=== PATIENT | male | born 1990 | race Caucasian/White ===

== ENCOUNTER 2020-07-13 15:57 | Emergency (ER) | payer MEDICARE, MEDICAID, SELFPAY ==
[2020-07-13 16:08] VITALS: BP 146/99; PULSE 73; RESP 18; TEMP 36.5; O2SAT 97; BMI 36.6
--- NOTE | 2020-07-13 16:16 | W.ED.DENTAL ---
HPI - Dental/Oral General: Chief complaint: Dental/Oral Stated complaint: dental pain Time Seen by Provider: 07/13/20 16:09 Source: patient Mode of arrival: ambulatory Limitations: no limitations History of Present Illness: HPI Narrative: Mr. Marie is a nice 30-year-old male who comes in complaining of dental pain for the past 2 to 3 days. His left inferior most posterior molar is causing him pain. He is scheduled see a dentist upcoming in the next 2 to 3 days but could not take the pain today. He denies any facial swelling or fever. Denies any difficulty swallowing. Associated symptoms: Denies ear or mastoid pain, fever(s), odynophagia or tongue swelling Review of Systems Const: Denies: fever(s), chills, body aches, fatigue, malaise or diaphoresis Eyes: Denies: change in vision, blurry vision, photophobia, eye discomfort, eye discharge or eye redness ENMT: Denies: throat pain, odynophagia, hoarseness, swelling of lips/tongue, ear or mastoid pain, ear discharge, change in hearing or nasal discharge Card: Denies: chest pain, palpitations, irregular heart rhythm, edema, lightheadedness, syncope, pre-syncope, dyspnea on exertion or orthopnea Resp: Denies: dyspnea, productive cough, non-productive cough, wheezing, hemoptysis or chest congestion GI: Denies: abdominal pain, nausea, vomiting, hematemesis, coffee ground emesis, heartburn, diarrhea, constipation, GI cramping, hematochezia or melena : Denies: flank pain, dysuria, urinary frequency, urinary urgency or hematuria Musc: Denies: neck pain, back pain, extremity pain, extremity swelling, joint pain, joint swelling, joint redness, joint warmth or joint stiffness Skin/Breast: Denies: rash, pruritus, erythema or skin tenderness Neuro: Denies: headache(s), numbness in extremities, weakness in extremities, sensory changes, lack of coordination, difficulty walking, dizziness, vertigo, confusion, Slurred speech present or seizure-like activity Eduardo/Lymph: Denies: easy bruising, easy bleeding, petechiae, purpura or enlarged lymph nodes All/Imm: Denies: urticaria, throat swelling, tongue swelling, facial swelling or acute wheezing PFSH ED PFSH: Medical History (Updated 07/13/20 @ 16:18 by Dahiana Dasilva) No pertinent past medical history Surgical History (Updated 07/13/20 @ 16:16 by Dahiana Dasilva) S/P cholecystectomy Physical Exam Const: COMMON NORMALS: no acute distress, patient oriented x3, no limitations, healthy appearing and well nourished GENERAL APPEARANCE: cooperative, well kempt and well developed HENMT: COMMON NORMALS: normocephalic, atraumatic, external ears normal, EAC's normal and Normal external nose present HEAD & SCALP: normal to inspection, normocephalic and atraumatic FACE & SINUS: normal facial exam and face symmetric NOSE: Normal external nose present and Normal nares present EXTERNAL EAR: Yes external ears normal EXTERNAL AUDITORY CANAL: EAC's normal MOUTH: Normal oral and palatal mucosa present, lip normal and tongue normal TEETH & GINGIVA: Yes other (Left inferior most posterior molar with dental caries and pain. No surrounding abscess or swelling) Eye: COMMON NORMALS: Equal, round and reactive pupils present and conjunctivae normal GENERAL EYE: appearance normal, both eyes and all related structures ALIGNMENT: Yes alignment normal PERIORBITAL: periorbital findings normal EYELID: eyelids normal CONJUNCTIVA: Yes conjunctivae normal SCLERA: sclerae normal PUPIL: Yes Equal, round and reactive pupils present Neck/C-Spine: COMMON NORMALS: full ROM, no lymphadenopathy, supple, no meningeal signs and no JVD GENERAL: Yes normal visual inspection and Yes trachea midline Chest: COMMONS NORMALS: normal inspection of the chest and normal palpation of entire chest wall Resp: COMMON NORMALS: normal respiratory effort, No retractions, No use of accessory muscles and clear to auscultation bilaterally EFFORT & INSPECTION: Yes able to speak in complete sentences and Yes symmetric chest movement AUSCULTATION: clear to auscultation bilaterally, no crackles, no rales, no rhonchi and no wheezes Cardio: COMMON NORMALS: no JVD, regular rate, regular rhythm, S1 normal heart sound present and S2 normal heart sound present RATE: regular rate RHYTHM: regular rhythm HEART SOUNDS: S1 normal heart sound present, S2 normal heart sound present, no click, no gallops, no murmurs, no rubs and abnormal split S2 GI: COMMON NORMALS: Soft to palpation and No hepatosplenomegaly present PALPATION: Yes Soft to palpation, No Tenderness to palpation present (GI), No Guarding due to palpation present (GI), No Rigid due to palpation, Yes No hepatosplenomegaly present, No Hernia present, No Palpable mass present and No Pulsatile mass present : COMMON NORMALS: Yes no CVA tenderness BLADDER/KIDNEY EXAM: Yes no CVA tenderness Back/Pelvis: COMMON NORMALS: no CVA tenderness, thoracic and lumbar spine normal to inspection, no thoracic nor lumbar tenderness and thoraco-lumbar ROM normal Extremity: COMMON NORMALS: normal to inspection, full ROM, capillary refill normal, no joint enlargement, no clubbing, cyanosis or edema and no calf tenderness Neuro: COMMON NORMALS: patient oriented x3, CN's II-XII intact bilaterally, moves all extremities, no focal motor deficits and no sensory deficits noted MENINGEAL SIGNS: Yes no meningeal signs SPEECH: speech normal Psych: COMMON NORMALS: mental status grossly normal, Normal thought process present, cooperative, normal affect, speech normal and activity/motor behavior normal APPEARANCE: Yes well kempt SPEECH: Yes normal speech THOUGHT PROCESS: Normal thought process present Skin: COMMON NORMALS: no rashes or lesions noted, turgor normal, no jaundice, no petechiae and no mottling GENERAL SKIN EXAM: no rashes or lesions noted and turgor normal Course Vital Signs: Vital signs: Vital Signs Temperature 97.7 F 07/13/20 16:08 Pulse Rate 73 07/13/20 16:08 Respiratory Rate 18 07/13/20 16:08 Blood Pressure 146/99 07/13/20 16:08 Pulse Oximetry 97 07/13/20 16:08 MDM - Dental/Oral MDM Narrative: Medical decision making narrative: Mr. Marie 30-year-old male comes in complaining of left-sided dental pain. There is no sign of abscess, facial swelling, airway involvement, Zoran's angina or otherwise. Patient just wants something here for pain and then he is ready to go home. Discharge Plan Discharge Patient Disposition: Home Clinical Impression: Toothache, Dental caries Condition: Stable Prescriptions: New Cleocin HCl 150 mg capsule 300 mg PO Q6H 10 Days Qty: 80 RF: 0 Discharge Orders: Discharge Order (Routine); Ordered 07/13/20 Ordered By: Dahiana Dasilva Referrals: Clifton Chou DO [Emergency Department] - 1-3 days Discharge Diet: Advance as tolerated Discharge Activity: Increase activity as tolerated Patient Instructions: Dental Caries (ED), Toothache (ED) Activity Restrictions/Additional Instructions: Please return to the ER immediately for any of the signs or symptoms listed on your discharge instruction sheets, worsening/changing of your symptoms, you are not getting better as quickly as expected, or for ANY other cause or concerns. Discharge Date/Time: 07/13/20 16:52 Coding Level of Care Code ED Specialized Developer for Chg Fwd Exam Comprehensive
[2020-07-13] MEDS: HYDROcodone-acetaminophen 5-325 mg Tablet 1 TAB PO (16:50)
[2020-07-13] MEDS: clindamycin 150 mg Capsule 300 MG PO (16:51)
== END 2020-07-13 16:52 | disposition home or self-care (01) ==
LOC: ER 16:39
PROVIDERS: Emergency Provider Emergency Medicine
DX: K02.9 Dental caries, unspecified (principal)
CPT/HCPCS: 12345; 99281; 99283

== ENCOUNTER 2020-09-17 09:23 | Emergency (ER) | payer MEDICARE, MEDICAID, SELFPAY ==
[2020-09-17 09:25] VITALS: BP 155/121; PULSE 87; RESP 16; TEMP 36.6; O2SAT 97; BMI 36.1
--- NOTE | 2020-09-17 09:35 | W.ED.DENTAL ---
HPI - Dental/Oral General: Chief complaint: Dental/Oral Stated complaint: Oral/Dental Time Seen by Provider: 09/17/20 09:35 History of Present Illness: HPI Narrative: Patient is a 30-year-old male who comes to the ED with dental pain. Patient has been seen here before for same complaint and was set up to see dentist but due to Covid his appointment was delayed. When he went to his dentist appointment they told him he needs to be put back on antibiotics again and then return towards the end of antibiotic prescription. Patient rates current dental pain an 8 out of 10. Patient also says he has high blood pressure and has not been taking his previously prescribed metoprolol because of side effects. Associated symptoms: Denies fever(s) or odynophagia Review of Systems Const: Denies: fever(s), chills or fatigue Eyes: Denies: change in vision or eye discomfort ENMT: Reports: dental pain; Denies: throat pain, odynophagia, nasal discharge or nasal congestion Card: Denies: chest pain, palpitations, edema, swelling of feet/ankles, dyspnea on exertion or orthopnea Resp: Denies: dyspnea, productive cough or non-productive cough GI: Denies: abdominal pain, nausea, vomiting, diarrhea, constipation or hematochezia : Denies: flank pain, difficulty urinating, dysuria or hematuria Musc: Denies: neck pain, back pain or extremity swelling Skin/Breast: Denies: rash or new lesions Neuro: Denies: headache(s), numbness in extremities or weakness in extremities PFS ED PFSH: Medical History No pertinent past medical history Surgical History S/P cholecystectomy Physical Exam Const: COMMON NORMALS: no acute distress, patient oriented x3 and alert GENERAL APPEARANCE: cooperative and comfortable HENMT: COMMON NORMALS: normocephalic HEAD & SCALP: normocephalic MOUTH: Normal oral and palatal mucosa present TEETH & GINGIVA: Yes caries (Extensive dental caries and on tooth #17 dental decay is more signficant.), Yes gingiva abnormal edematous (Surrounding tooth #17.) and Yes poor dentition THROAT: posterior oropharynx normal and uvula midline Neck/C-Spine: COMMON NORMALS: supple GENERAL: Yes normal visual inspection Resp: COMMON NORMALS: normal respiratory effort, No retractions, No use of accessory muscles and clear to auscultation bilaterally AUSCULTATION: clear to auscultation bilaterally Cardio: COMMON NORMALS: regular rate, regular rhythm, S1 normal heart sound present, S2 normal heart sound present, No gallops present (Cardio), No clicks present (Cardio), No murmurs present (Cardio) and Peripheral pulses 2+ throughout RATE: regular rate RHYTHM: regular rhythm HEART SOUNDS: S1 normal heart sound present and S2 normal heart sound present PERIPHERAL PULSES: Peripheral pulses 2+ throughout GI: COMMON NORMALS: Normal to inspection, nondistended, normoactive bowel sounds present, Soft to palpation, non-tender and no masses PALPATION: Yes Soft to palpation : COMMON NORMALS: Yes no CVA tenderness BLADDER/KIDNEY EXAM: Yes no CVA tenderness Back/Pelvis: COMMON NORMALS: no CVA tenderness Extremity: COMMON NORMALS: normal to inspection Neuro: COMMON NORMALS: patient oriented x3 and moves all extremities SENSORIUM/ORIENTATION: Yes alert Skin: GENERAL SKIN EXAM: dry skin Course ED course: I discussed with patient the importance of blood pressure management. He states he was on a blood pressure med previously but stopped taking it due to side effects. I told him that he needs to return to his PCP with him in the next 7 to 10 days to get his blood pressure reevaluated and to discuss medical management of blood pressure. We will start him on a low-dose of lisinopril until he sees PCP in [place] and will readjust as needed. Vital Signs: Vital signs: Vital Signs Temperature 97.8 F 09/17/20 09:25 Pulse Rate 86 09/17/20 10:10 Respiratory Rate 18 09/17/20 10:10 Blood Pressure 168/114 09/17/20 10:10 Pulse Oximetry 96 09/17/20 10:10 MDM - Dental/Oral MDM Narrative: Medical decision making narrative: Patient is a 30-year-old male who comes to the ED with dental pain. Patient contacted dentist but they told him he needs to be on antibiotic before coming in. Patient also had an elevated blood pressure while here in the ED and likely some of it was due to pain, but patient said he was on metoprolol for his blood pressure but stopped taking it due to side effects. He currently does not take anything for his blood pressure. I discussed with him the importance of talking with his PCP about blood pressure medication management. Patient was discharged with pain due to dental caries and hypertension. I put patient on a low dose of lisinopril and told him to follow-up with his PCP in the next 7 to 10 days to reevaluate blood pressure management. I also sent with a prescription for clindamycin. Follow-up with dentist to get dental pain managed. Return to ED precautions given. Patient understood agree with plan. Discharge Plan Discharge Patient Disposition: Home Clinical Impression: Pain due to dental caries Hypertension Qualifiers: Hypertension type: essential hypertension Qualified Code(s): I10 - Essential (primary) hypertension Condition: Stable Prescriptions: New clindamycin HCl 150 mg capsule 300 mg PO QID 10 Days Qty: 80 RF: 0 lisinopril 10 mg tablet 10 mg PO DAILY Qty: 30 RF: 0 Discharge Orders: Discharge Order (Routine); Ordered 09/17/20 Ordered By: Ronn Ovalle Discharge Diet: Regular Discharge Activity: Resume usual activity Patient Instructions: Dental Caries (ED), Hypertension (ED) Activity Restrictions/Additional Instructions: Follow-up with medical provider as directed. Set up an appointment with dentist to address dental pain. Contact your PCP and schedule an appointment with them in the next 7 to 10 days to reassess your blood pressure and blood pressure medication management. Take [id number] ibuprofen or Tylenol per instruction to help with pain. Take medications as prescribed. Return to the ER or your medical provider if condition worsens. Please read and understand discharge instructions. If any questions, please ask. Discharge Date/Time: 09/17/20 10:10 Coding Level of Care Code ED Vehicle Service Agent for Gildardo Fwd Exam Comprehensive
[2020-09-17] MEDS: HYDROcodone-acetaminophen 7.5-325 mg Tablet 1 TAB PO (10:07)
[2020-09-17 10:10] VITALS: BP 168/114; PULSE 86; RESP 18; O2SAT 96
== END 2020-09-17 10:10 | disposition home or self-care (01) ==
PROVIDERS: Emergency Provider Physician Assistant
DX: K02.9 Dental caries, unspecified (principal); I10 Essential (primary) hypertension
CPT/HCPCS: 12345; 99282

== ENCOUNTER 2022-04-02 17:04 | Emergency (ER) | payer MEDICARE, MEDICAID, SELFPAY ==
[2022-04-02 17:12] VITALS: BP 147/100; PULSE 100; RESP 18; TEMP 37.5; O2SAT 98; BMI 29.5
--- NOTE | 2022-04-02 17:14 | XRR_ITS ---
PROCEDURE INFORMATION: Exam: XR Right Hand Exam date and time: 04/02/2022 5:26 PM Age: 31 years old Clinical indication: Pain; Hand; Right; Additional info: Right hand injury TECHNIQUE: Imaging protocol: XR Right hand. Views: 3 or more views. COMPARISON: No relevant prior studies available. FINDINGS: Bones/joints: Normal. Soft tissues: Normal. XR/XR hand RT min 3V* [id number] IMPRESSION: No acute findings.
[2022-04-02 17:23] VITALS: BP 147/100; PULSE 100; RESP 18; O2SAT 98
--- NOTE | 2022-04-02 17:23 | W.ED.EXTPRO ---
HPI - Extremity Problem General: Chief complaint: Extremity Injury, Upper Stated complaint: Thinks he broke his Right hand Time Seen by Provider: 04/02/22 17:16 History of Present Illness: Patient is a 31-year-old male who comes to the ED right hand injury. Injury occurred just prior to arrival. Patient says he got angry about a personal matter at home and punched a table with his right hand. He now has 10 out of 10 pain its in his second third and fourth digit of right hand. Any movement of those fingers causes worsening pain. He has not taken anything for pain before coming to the ED. he has a superficial abrasion over PIP joint of second digit. Associated symptoms: Deny chest pain, fever(s) or rash Review of Systems Const: Denies: fever(s), chills or fatigue Eyes: Denies: change in vision or eye discomfort ENMT: Denies: throat pain, odynophagia, nasal discharge or nasal congestion Card: Denies: chest pain, palpitations, edema, swelling of feet/ankles, dyspnea on exertion or orthopnea Resp: Denies: dyspnea, productive cough or non-productive cough GI: Denies: abdominal pain, nausea, vomiting, diarrhea, constipation or hematochezia : Denies: flank pain, difficulty urinating, dysuria or hematuria Musc: Reports: extremity pain (Right hand pain-second third and fourth digit.); Denies: neck pain, back pain or extremity swelling Skin/Breast: Reports: new lesions (Superficial abrasion over PIP joint of second digit.); Denies: rash Neuro: Denies: headache(s), numbness in extremities or weakness in extremities [facility] ED PFSH: Medical History No pertinent past medical history Surgical History S/P cholecystectomy Physical Exam Const: COMMON NORMALS: patient oriented x3 GENERAL APPEARANCE: cooperative and comfortable HENMT: COMMON NORMALS: normocephalic HEAD & SCALP: normocephalic MOUTH: Normal oral and palatal mucosa present THROAT: posterior oropharynx normal and uvula midline Neck/C-Spine: COMMON NORMALS: supple GENERAL: Yes normal visual inspection Resp: COMMON NORMALS: normal respiratory effort, No retractions, No use of accessory muscles and clear to auscultation bilaterally AUSCULTATION: clear to auscultation bilaterally Cardio: COMMON NORMALS: regular rate, regular rhythm, S1 normal heart sound present, S2 normal heart sound present, No gallops present (Cardio), No clicks present (Cardio), No murmurs present (Cardio) and Peripheral pulses 2+ throughout RATE: regular rate RHYTHM: regular rhythm HEART SOUNDS: S1 normal heart sound present and S2 normal heart sound present PERIPHERAL PULSES: Peripheral pulses 2+ throughout GI: COMMON NORMALS: Normal to inspection, nondistended, normoactive bowel sounds present, Soft to palpation, non-tender and no masses PALPATION: Yes Soft to palpation : COMMON NORMALS: Yes no CVA tenderness BLADDER/KIDNEY EXAM: Yes no CVA tenderness Back/Pelvis: COMMON NORMALS: no CVA tenderness Extremity: NARRATIVE EXTREMITY EXAM: Right hand?patient has some mild ecchymosis and swelling around the PIP joint of second third and fourth digit. He has a superficial abrasion on the DIP joint of the second digit. Neurovascular tact. Limited range of motion of the fingers due to pain. Neuro: COMMON NORMALS: patient oriented x3 and moves all extremities Skin: GENERAL SKIN EXAM: dry skin Course Vital Signs: Vital signs: Vital Signs Temperature 99.5 F 04/02/22 17:12 Pulse Rate 100 04/02/22 17:23 Respiratory Rate 18 04/02/22 17:23 Blood Pressure 147/100 04/02/22 17:23 Pulse Oximetry 98 04/02/22 17:23 MDM - Extremity (Nontraumatic) Medical Decision Making Patient is a 31-year-old male comes to the ED with right hand injury. He has some swelling and bruising around the PIP joint of right second third and fourth digit. There is some pain with range of motion and he has a superficial abrasion over PIP joint of second digit. X-ray of right hand showed no acute fractures or findings. Patient diagnosed with a contusion on right hand and abrasion of finger. He was discharged home with a prescription for ibuprofen 800 mg. Return to ED precautions given. Follow-up with PCP in the next week for reevaluation. Patient understood and agreed with plan. Lab Data Radiology Impressions Hand X-Ray 04/02/22 17:14 IMPRESSION: No acute findings. Discharge Plan Discharge Patient Disposition: Home Clinical Impression: Contusion of hand including fingers Qualifiers: Encounter type: initial encounter Laterality: right Qualified Code(s): S60.221A - Contusion of right hand, initial encounter Abrasion of finger of right hand Qualifiers: Encounter type: initial encounter Qualified Code(s): S60.419A - Abrasion of unspecified finger, initial encounter Condition: Stable Prescriptions: New ibuprofen 800 mg tablet 800 mg PO Q8H PRN (Reason: pain) Qty: 15 0RF No Action lisinopril 10 mg tablet 10 mg PO DAILY Qty: 30 0RF Discharge Orders: Discharge ED (Routine); Ordered 04/02/22 Ordered By: Ronn Ovalle Discharge Diet: Regular Discharge Activity: Increase activity as tolerated Patient Instructions: Contusion in Adults (ED) Activity Restrictions/Additional Instructions: Follow-up with medical provider as directed in the next 5 to 7 days reevaluation. Put cold pack on hand to help with symptoms.Take medications as prescribed. Return to the ER or your medical provider if condition worsens. Please read and understand discharge instructions. Thank you for choosing [facility] for your healthcare needs today. Please realize this is an emergency room and that we are providing you with a medical screening exam and this may not be complete and all inclusive of all the testing and or work up that you may need to determine your ailment or severity of your illness. It is very important that you follow up as instructed or that you return to the Emergency Department should you have concerns or if your condition changes or worsens in any way. Coding Level of Care Code ED Dermatologist Managing Partner for Gildardo Monroy Exam Comprehensive
[2022-04-02] MEDS: HYDROcodone-acetaminophen 7.5-325 mg Tablet 1 TAB PO (17:33)
== END 2022-04-02 18:14 | disposition home or self-care (01) ==
PROVIDERS: Emergency Provider Physician Assistant
DX: S60.221A Contusion of right hand, initial encounter (principal); S60.419A Abrasion of unspecified finger, initial encounter; W22.09XA Striking against other stationary object, initial encounter
CPT/HCPCS: 73130; 99283

== ENCOUNTER 2022-09-12 08:32 | Emergency (ER) | payer MEDICARE, MEDICAID, SELFPAY ==
[2022-09-12 08:34] VITALS: BP 148/89; PULSE 67; RESP 16; TEMP 36.6; O2SAT 99; BMI 30.4
--- NOTE | 2022-09-12 08:37 | XR_ITS ---
WS: [id number] Left hand, 3 views, 09/12/2022 Clinical Data: Trauma/pain Comparison: None. Findings: No fractures or dislocations are seen. The soft tissues are unremarkable. The joint spaces are normal XR/XR hand LT min 3V* [id number] Impression: Negative left hand.
--- NOTE | 2022-09-12 08:40 | ED_ITS ---
HPI - Extremity Problem General: Chief complaint: Extremity Injury, Upper Stated complaint: Injury to left hand Time Seen by Provider: 09/12/22 08:34 Source: patient Mode of arrival: ambulatory History of Present Illness: 32-year-old male presents emergency room complaining of left hand pain. Yesterday he was moving a transmission on the holly the transmission slipped and pinched his hand between the handle of the holly and the transmission itself. No other injuries he cannot recall the last tetanus shot is he has a small abrasion on the palmar surface of the left third finger overlying the DIP. He is able to flex and extend without difficulty has mild discomfort. His biggest concern is his lack of tetanus immunization. MD Complaint: joint pain Onset (ago): day(s) (1) Pain Consistency: constant Location: left (Third finger) Quality: aching Radiation: none Relieving factors: nothing Exacerbating factors: nothing Associated symptoms: Deny arthralgias, chest pain, fever(s), myalgias, rash or short of breath Review of Systems Const: Denies: fever(s), chills, fatigue or malaise ENMT: Denies: throat pain, ear or mastoid pain, nasal discharge or nasal congestion Card: Denies: chest pain Resp: Denies: dyspnea, productive cough or non-productive cough GI: Denies: abdominal pain, nausea, vomiting, hematemesis, coffee ground emesis, diarrhea, constipation, bloating, hematochezia or melena Musc: Reports: extremity swelling Skin/Breast: Denies: rash PFS ED PFSH: Medical History (Updated 09/20/22 @ 00:02 by ) No pertinent past medical history Surgical History S/P cholecystectomy Physical Exam Const: COMMON NORMALS: no acute distress GENERAL APPEARANCE: cooperative and comfortable ORIENTATION/CONSCIOUSNESS: Yes awake, Yes oriented to person, Yes oriented to place and Yes oriented to time HENMT: COMMON NORMALS: normocephalic, atraumatic and hearing grossly normal bilaterally HEAD & SCALP: normocephalic and atraumatic Lymph: LYMPHATIC: no lymphadenopathy noted and no lymphedema noted Resp: COMMON NORMALS: normal respiratory effort, No retractions, No use of accessory muscles and clear to auscultation bilaterally AUSCULTATION: clear to auscultation bilaterally Cardio: COMMON NORMALS: regular rate, regular rhythm and No murmurs present (Cardio) RATE: regular rate RHYTHM: regular rhythm Extremity: OTHER: No deformity of the left hand moderate swelling discomfort around the third and fourth digits. Small laceration just a few millimeters not gaping in the left fourth digit no evidence of any infection no active bleeding. Neuro: SENSORIUM/ORIENTATION: Yes oriented to person, Yes oriented to place and Yes oriented to time Skin: COMMON NORMALS: no rashes or lesions noted GENERAL SKIN EXAM: no rashes or lesions noted Course Vital Signs: Vital signs: Vital Signs Temperature 98.6 F 09/12/22 09:21 Pulse Rate 67 09/12/22 08:34 Respiratory Rate 18 09/12/22 09:21 Blood Pressure 148/89 09/12/22 08:34 Pulse Oximetry 97 09/12/22 09:21 Oxygen Delivery Me thod 09/12/22 08:34 MDM - Extremity (Nontraumatic) Medical Decision Making No acute fractures on the hand. Rest ice anti-inflammatories as needed follow- up as needed. Tetanus updated Medical Records I reviewed the patient's medical records. Lab Data I reviewed the patient's lab results. Radiology Impressions Hand X-Ray 09/12/22 08:37 Impression: Negative left hand. Discharge Plan Discharge Patient Disposition: Home Clinical Impression: Hand pain, left Condition: Stable Prescriptions: No Action lisinopril 10 mg tablet 10 mg PO DAILY Qty: 30 0RF ibuprofen 800 mg tablet 800 mg PO Q8H PRN (Reason: pain) Qty: 15 0RF Discharge Orders: Discharge ED (Routine); Ordered 09/12/22 Ordered By: Clifton Chou Discharge Diet: Usual diet Discharge Activity: Increase activity as tolerated Patient Instructions: Opioid Safety, Pain Management Activity Restrictions/Additional Instructions: Ice Tylenol and ibuprofen as needed to relieves discomfort in the left hand and left third finger Stand Alone Forms: Work/School Release Coding 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
[2022-09-12] MEDS: tetanus-dipt-pertussis 0.5 mL SDV IM (09:05)
[2022-09-12 09:21] VITALS: RESP 18; TEMP 37; O2SAT 97
== END 2022-09-12 09:23 | disposition home or self-care (01) ==
PROVIDERS: Emergency Provider Family Medicine
DX: M79.642 Pain in left hand (principal); Z23 Encounter for immunization
CPT/HCPCS: 73130; 90471; 90715; 99283

== ENCOUNTER 2022-12-15 17:27 | Emergency (ER) | payer MEDICARE, MEDICAID, SELFPAY ==
[2022-12-15 17:45] VITALS: BP 151/93; PULSE 74; RESP 14; TEMP 36.7; O2SAT 99
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
[2022-12-15 20:02] VITALS: PULSE 80; RESP 16; O2SAT 98
== END 2022-12-15 20:03 | disposition home or self-care (01) ==
PROVIDERS: Emergency Provider Physician Assistant
DX: S60.221A Contusion of right hand, initial encounter (principal); W22.09XA Striking against other stationary object, initial encounter
CPT/HCPCS: 73130; 99283

== ENCOUNTER 2023-10-02 05:21 | Emergency (ER) | payer MEDICARE, MEDICAID, SELFPAY ==
[2023-10-02 05:22] VITALS: BP 150/110; PULSE 94; RESP 18; TEMP 36.5; O2SAT 97; BMI 36.2
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
[2023-10-02 05:36] VITALS: BP 150/110; PULSE 87; RESP 20; O2SAT 95
--- NOTE | 2023-10-02 06:13 | XR_ITS ---
WS: [id number] Portable AP upright chest, 10/02/2023 Clinical Data: Trauma Comparison: None. Findings: No nodules, masses or effusions are seen. The heart is normal. The pulmonary vascularity is not increased. No pneumonia or pneumothorax is seen. Impression: Negative chest.
[2023-10-02 06:18] VITALS: BP 150/105; PULSE 98; RESP 16; O2SAT 96
[2023-10-02 06:39] VITALS: BP 141/101; PULSE 76; RESP 18; O2SAT 94
[2023-10-02] MEDS: sodium chloride 0.9% 1,000 ML 999 ML IV (06:48)
[2023-10-02 06:56] LABS: Basophils % 0.2 %; Eosinophils % 0.1 %; Hematocrit 45.5 % (37-53); Lymphocytes # 1.4 10^3/uL (0.8-4.8); Lymphocytes % 9.1 %; Mean Corpuscular HGB Conc 32.5 g/dL (30-55); Mean Corpuscular Hemoglobin 28.1 pg (27-33); Mean Corpuscular Volume 86.5 fl (82-101); Mean Platelet Volume 11.2 fL (7.4-10.4); Monocytes # 0.9 10^3/uL (0.2-0.9); Monocytes % 6.1 %; Neutrophils # 12.59 10^3/uL (1.8-7.7); Nucleated Red Blood Cells % 0 %; Platelet Count 251 10^3/cmm (157-399); Red Blood Count 5.26 10^6/uL (3.85-5.65); White Blood Count 14.99 10^3/uL (3.29-11.43)
[2023-10-02] MEDS: ondansetron 2 mg/ML SDV 2 mL 4 MG IVP (06:57)
[2023-10-02 07:11] LABS: Alanine Aminotransferase 24 U/L (0-41); Albumin Level 4.4 g/dL (3.5-5.2); Alcohol Level < 10 mg/dL (0-10); Alkaline Phosphatase 79 U/L (40-130); Anion Gap 17.5 (5-19); Aspartate Amino Transferase 24 U/L (0-40); Blood Urea Nitrogen 13 mg/dL (6-20); Calcium 9.4 mg/dL (8.5-10.5); Carbon Dioxide 25 mmol/L (22-29); Chloride 98 mmol/L (98-107); Globulin 3.7 g/dL (1.3-4.6); Glucose 112 mg/dL (65-115); Osmolality Calculated 285 mOsm/kg (285-295); Potassium 3.5 mmol/L (3.5-5.1); Sodium 137 mmol/L (136-145); Total Protein 8.1 g/dL (6.6-8.7)
[2023-10-02 07:29] VITALS: BP 131/90; O2SAT 95
[2023-10-02 09:20] LABS: Add Urine Culture? Yes; Add Urine Microscopic? YES; Bacteria Urine TRACE /hpf; Bilirubin Urine 1+ (Negative); Blood Urine 2+ (Negative); Calcium Oxalate Crystals Urine 0-4 /hpf; Glucose Urine UA Norm (Normal); Ketones Urine 2+ (Negative); Leukocyte Esterase Urine Trace (Negative); Mucus Urine 2+ /hpf; Nitrate Urine Negative (Negative); Protein Urine 1+ (Negative); RBC Urine 0-4 /hpf (0-2); Specific Gravity, Urine 1.025 (1.005-1.030); Squamous Epithelial Cell Urine 0-4 /hpf (0-5); Urine Appearance Hazy (CLEAR); Urine Color Dark Yellow (Yellow); Urobilinogen Urine Norm (Negative); WBC Urine 25-40 /hpf (0-5); pH Urine 5 (5-7)
--- NOTE | 2023-10-02 09:43 | DCPLANNER ---
Referral was sent to ortho on 10/02/23 at 0949.clinic to contact patient
== END 2023-10-02 10:15 | disposition home or self-care (01) ==
PROVIDERS: Emergency Medicine; Emergency Provider Family Medicine
DX: S12.600A Unspecified displaced fracture of seventh cervical vertebra, initial encounter for closed fracture (principal); N30.90 Cystitis, unspecified without hematuria; V89.2XXA Person injured in unspecified motor-vehicle accident, traffic, initial encounter
CPT/HCPCS: 36415; 70450; 71045; 72125; 80053; 80307; 81001; 85025; 87086; 96374; 99285; J2405; J7030

== ENCOUNTER 2024-08-19 10:06 | Emergency (ER) | payer MEDICARE, MEDICAID, SELFPAY ==
--- NOTE | 2024-08-19 10:08 | XR_ITS ---
WS: [id number] Left ankle, 3 views, 08/19/2024 Clinical Data: injury/fall Comparison: None. Findings: No fractures or dislocations are seen. The ankle mortise is normal. The talus and calcaneus are unrem arkable. No soft tissue swelling over the medial or lateral malleolus is seen. XR/XR ankle LT min 3V* [id number] Impression: Negative left ankle.
[2024-08-19 10:24] VITALS: BP 187/127; PULSE 96; RESP 22; TEMP 36.8; O2SAT 97; BMI 37.5
[2024-08-19 10:43] VITALS: BP 190/122
--- NOTE | 2024-08-19 10:43 | ED_ITS ---
HPI - Extremity Injury (Lower) General: Chief Complaint: Fall Stated Complaint: fell--left ankle injury Time Seen by Provider: 08/19/24 10:08 Source: patient Mode of arrival: wheelchair Limitations: no limitations History of Present Illness: Patient is a 34-year-old male who presents to ED today for evaluation of a left ankle injury that he sustained just prior to arrival after he accidentally slipped on wet stairs. He states he heard a pop to the lateral aspect of his left ankle and has noticed pain and swelling since. He has no other injuries or complaints at this time. complaint: ankle injury Onset (ago): hour(s) Injury: Left: ankle Place: home Severity: moderate Relieving factors: immobilization Exacerbating factors: weight bearing, movement and palpation Context: fall Associated symptoms: Reports inability to bear weight Other symptoms: none Related Data Previous Rx's Medication Instructions Recorded amoxicillin 875 mg-potassium 1 tab PO BID 10 days #20 tabs 08/06/24 clavulanate 125 mg tablet ibuprofen 800 mg tablet 800 mg PO Q8H PRN pain #60 tabs 08/06/24 ondansetron 8 mg disintegrating 8 mg PO Q8H PRN nausea and 08/06/24 tablet vomiting 5 days #15 tabs lisinopril 20 mg tablet 20 mg PO DAILY #30 tabs 08/19/24 Allergies Allergy/AdvReac Type Severity Reaction Status Date / Time No Known Allergies Allergy Verified 08/06/24 13:54 Review of Systems Musc: Reports: joint pain (L ankle) and joint swelling (L ankle) Neuro: Reports: difficulty walking (secondary to pain in L ankle); Denies: numbness in extremities, weakness in extremities or sensory changes PFSH ED PFSH: Medical History No pertinent past medical history Surgical History S/P cholecystectomy Social History Smoking and tobacco/nicotine status: never used tobacco/nicotine Physical Exam Const: COMMON NORMALS: no acute distress, patient oriented x3, no limitations, alert and well nourished GENERAL APPEARANCE: cooperative NUTRITIONAL APPEARANCE: obese Extremity: RIGHT LOWER EXTREMITY: Yes foot & digits (TTP lateral L ankle; edema; no bony deformities) Right ankle: Yes ROM (limited secondary to pain) and Yes neurovascular exam (normal) Neuro: COMMON NORMALS: patient oriented x3, moves all extremities, no focal motor deficits and no sensory deficits noted SENSORIUM/ORIENTATION: Yes alert Course Vital Signs: Vital signs: Vital Signs Temperature 98.3 F 08/19/24 10:24 Pulse Rate 96 08/19/24 10:24 Respiratory Rate 22 H 08/19/24 10:24 Blood Pressure 190/122 08/19/24 10:43 Pulse Oximetry 97 08/19/24 10:24 Oxygen Delivery Me thod Room Air 08/19/24 10:24 MDM - Extremity Injury (Lower) Medical Decision Making XR unremarkable. Will JAI wrap/crutches. Instructions for RICE therapy and weight bearing as tolerated. Patient very hypertensive upon arrival. Asymptomatic. Reports chronic history of hypertension. States he stopped all his medications 5 years ago. States blood pressures normally run extremely elevated. Will start him on lisinopril and have him keep a blood pressure log and follow-up with primary care. Return to ED precautions given. Differential Diagnosis Likely ankle sprain and strain Medical Records I reviewed the patient's medical records. Lab Data Radiology Impressions Ankle X-Ray 08/19/24 10:08 Impression: Negative left ankle. All radiology interpretation(s) finalized by discharge Discharge Plan Discharge Patient Disposition: Home Clinical Impression: Chronic hypertension Left ankle sprain Qualifiers: Encounter type: initial encounter Involved ligament of ankle: unspecified ligament Qualified Code(s): S93.402A - Sprain of unspecified ligament of left ankle, initial encounter Condition: Stable Prescriptions: New lisinopril 20 mg tablet 20 mg PO DAILY Qty: 30 0RF No Action amoxicillin-pot clavulanate 875-125 mg tablet 1 tab PO BID 10 Days Qty: 20 0RF ondansetron 8 mg tablet,disintegrating 8 mg PO Q8H PRN (Reason: nausea and vomiting) 5 Days Qty: 15 0RF ibuprofen 800 mg tablet 800 mg PO Q8H PRN (Reason: pain) Qty: 60 0RF Discharge Orders: Discharge ED (Routine); Ordered 08/19/24 Ordered By: Arabella Singh Patient Instructions: Ankle Sprain (DC), Chronic Hypertension (DC), Hypertension (ED), RICE Therapy Activity Restrictions/Additional Instructions: As we discussed, you need to ice and elevate your extremity. You may use the crutches as needed for weightbearing. Please follow-up with primary care in 1 to 2 weeks if symptoms do not seem to be improving. As we discussed we will start you on blood pressure medications for your chronic untreated hypertension. You need to keep a blood pressure log and follow-up with primary care so they can adjust these medications based on response. Coding Level of Care Code ED Loan Servicing Officer for Gildardo Monroy
[2024-08-19 11:22] VITALS: BP 181/116; PULSE 91; O2SAT 94
--- NOTE | 2024-08-22 08:04 | DCPLANNER ---
messaged both [facility] and [facility] for er f/u
== END 2024-08-19 11:23 | disposition home or self-care (01) ==
PROVIDERS: Emergency Provider Physician Assistant
DX: S93.402A Sprain of unspecified ligament of left ankle, initial encounter (principal); I10 Essential (primary) hypertension; W01.0XXA Fall on same level from slipping, tripping and stumbling without subsequent striking against object, initial encounter
CPT/HCPCS: 73610; 99283

== ENCOUNTER 2025-11-17 14:56 | Emergency (ER) | payer MEDICARE, MEDICAID, SELFPAY ==
[2025-11-17 15:23] VITALS: BP 181/108; PULSE 94; RESP 18; TEMP 36.3; O2SAT 98; BMI 38.1
--- NOTE | 2025-11-17 15:48 | ED_ITS ---
HPI - Dental/Oral General: Chief complaint: Dental/Oral Stated complaint: dental Time Seen by Provider: 11/17/25 15:31 Source: patient Mode of arrival: ambulatory Limitations: no limitations History of Present Illness: Patient is a 35-year-old male present to the emergency department clearing of left lower dental pain for the past 3 days. Reports history of infection stating this feels similar. He has a dentist but has not been able to get into see them. States that he is having swelling expanding towards his ear and down his throat but no trouble swallowing or trouble breathing. No fevers or chills. No nausea or vomiting. No other symptoms at this time. Denies any dental trauma. MD Complaint: tooth pain Onset (ago): day(s) (3) Duration: constant Context: history of dental caries and poor dental care Associated symptoms: Reports ear or mastoid pain; Denies fever(s) Related Data Previous Rx's ?Medication ?Instructions ?Recorded amoxicillin 875 mg-potassium 1 tab PO BID 10 days #20 tabs 08/06/24 clavulanate 125 mg tablet ibuprofen 800 mg tablet 800 mg PO Q8H PRN pain #60 t abs 08/06/24 ondansetron 8 mg disintegrating 8 mg PO Q8H PRN nausea and 08/06/24 tablet vomiting 5 days #15 tabs lisinopril 20 mg tablet 20 mg PO DAILY #30 tabs 07/25 06/15 amoxicillin 875 mg-potassium 1 tab PO BID 7 days #14 t abs 11/17/25 clavulanate 125 mg tablet prednisone 10 mg tablets in a dose 10 mg PO DIRECTE D #21 ea 11/17/25 pack Allergies Allergy/AdvReac Type Severity Reaction Status Date / Time No Known Allergies Allergy Verified 11/17/25 15:28 Review of Systems General: Reports: 10 or more systems reviewed and unremarkable except in HPI and below Const: Denies: fever(s), chills or fatigue Eyes: Denies: change in vision ENMT: Reports: dental pain, ear or mastoid pain and sinus pain (Facial swelling/neck swelling); Denies: throat pain or nasal discharge Card: Denies: chest pain, palpitations, swelling of feet/ankles or lightheadedness Resp: Denies: dyspnea, productive cough or wheezing GI: Denies: abdominal pain, nausea, vomiting, diarrhea or constipation : Denies: flank pain, difficulty urinating, dysuria or urinary frequency Musc: Denies: back pain or joint pain Skin/Breast: Denies: rash Neuro: Denies: headache(s), numbness in extremities or weakness in extremities PFSH ED PFSH: Medical History No pertinent past medical history Surgical History S/P cholecystectomy Social History Smoking and tobacco/nicotine status: never used tobacco/nicotine Physical Exam Const: COMMON NORMALS: no acute distress and no limitations GENERAL APPEARANCE: cooperative, comfortable and well developed ORIENTATION/CONSCIOUSNESS: Yes awake HENMT: COMMON NORMALS: normocephalic, atraumatic and hearing grossly normal bilaterally HEAD & SCALP: normocephalic and atraumatic OTHER: Overall poor dentition with multiple caries and restorations. Left lower dentition showing cracked tooth with associated gingival edema, but no fluctuance or signs of apical abscess at this time. There is mild facial swelling and tenderness to palpation expanding up towards the ear. No posterior oropharyngeal swelling or signs of respiratory compromise. Eye: COMMON NORMALS: Equal, round and reactive pupils present, EOMs intact bilaterally and conjunctivae normal CONJUNCTIVA: Yes conjunctivae normal PUPIL: Yes Equal, round and reactive pupils present Neck/C-Spine: COMMON NORMALS: full ROM and supple Extremity: COMMON NORMALS: normal to inspection, full ROM and capillary refill normal Skin: COMMON NORMALS: no rashes or lesions noted GENERAL SKIN EXAM: no rashes or lesions noted Course Vital Signs: Vital signs: Vital Signs Temperature 97.4 F L 11/17/25 15:23 Pulse Rate 94 11/17/25 15:23 Respiratory Rate 18 11/17/25 15:23 Blood Pressure 181/108 11/17/25 15:23 Pulse Oximetry 98 11/17/25 15:23 Oxygen Delivery Me thod Room Air 11/17/25 15:23 MDM - Dental/Oral Medical Decision Making Patient presenting with complaints of left dental pain, comparable to history of dental abscess. There is clinical signs and symptoms of dental abscess on exam without respiratory compromise or toxicity, and he will treat with Augmentin prior to following up with his dentist for further definitive management. Stable for discharge at this time, Apex given here for pain as well as shot of Decadron. No radiology studies performed this visit Discharge Plan Discharge Patient Disposition: Home Clinical Impression: Dental abscess Condition: Stable Prescriptions: New prednisone 10 mg tablets,dose pack 10 mg PO DIRECTED Qty: 21 0RF Rx Instructions: see taper instructions 6 tablets on day 1, 5 tablets on day 2, 4 tablets on day 3, 3 tablets on day 4, 2 tablets on day 5, and 1 tablet a day 6. P.o. amoxicillin-pot clavulanate 875-125 mg tablet 1 tab PO BID 7 Days Qty: 14 0RF No Action amoxicillin-pot clavulanate 875-125 mg tablet 1 tab PO BID 10 Days Qty: 20 0RF ondansetron 8 mg tablet,disintegrating 8 mg PO Q8H PRN (Reason: nausea and vomiting) 5 Days Qty: 15 0RF ibuprofen 800 mg tablet 800 mg PO Q8H PRN (Reason: pain) Qty: 60 0RF lisinopril 20 mg tablet 20 mg PO DAILY Qty: 30 0RF Discharge Orders: Discharge ED (Routine); Ordered 11/17/25 Ordered By: Jose L Buchanan Patient Instructions: Patient Portal & Frances Instructions Activity Restrictions/Additional Instructions: Discharge Instructions: Dental Abscess Your Diagnosis: Dental Abscess What is a dental abscess? A dental abscess is an infection at the root of a tooth or between the gum and tooth. It causes pain, swelling, and can spread if not treated properly. Your Medications: Augmentin (Amoxicillin-Clavulanate) - Take 875 mg by mouth twice daily for 7 days - Take with food to reduce stomach upset - Complete the entire course even if you feel better - If you develop severe diarrhea (3 or more loose stools per day), fever, or abdominal cramping, contact your doctor immediately Prednisone Taper - Take as directed on your prescription bottle - Take with food - Do not stop this medication suddenly Pain Management: - For pain, take ibuprofen 400-600 mg with acetaminophen (Tylenol) 1000 mg every 6 hours as needed - This combination is effective for dental pain - Do not exceed the maximum daily doses: ibuprofen 2400 mg, acetaminophen 3000 mg Important Instructions: Call your doctor or return to the emergency department if you develop: - Worsening pain or swelling - Fever over 100.4?F (38?C) - Difficulty swallowing or breathing - Swelling that spreads to your neck, eye area, or face - Severe diarrhea (3 or more loose stools per day) - Rash or hives Dental Follow-Up: - You MUST see a dentist within 1-2 days - The antibiotics treat the infection temporarily, but you need definitive dental treatment (such as root canal or extraction) to cure the problem - Without dental treatment, the infection will likely return - If you cannot get a dental appointment within 1-2 days, call this office General Care: - Rinse your mouth gently with warm salt water (1/2 teaspoon salt in 8 oz warm water) several times daily - Maintain good oral hygiene by brushing and flossing gently - Avoid chewing on the affected side - Stay well hydrated - Get adequate rest to help your body fight the infection Activity: - You may return to normal activities as tolerated - Avoid strenuous exercise until the infection improves Diet: - Eat soft foods if chewing is painful - Avoid very hot or cold foods and beverages - Avoid alcohol while taking antibiotics Remember: Antibiotics alone do not cure a dental abscess. Dental treatment is essential to prevent the infection from returning. Print Language: Israeli Coding Level of Care Code ED [employer]
[2025-11-17 16:12] VITALS: BP 184/113; PULSE 87; O2SAT 100
[2025-11-17] MEDS: HYDROcodone-acetaminophen 7.5-325 mg Tablet 2 TAB PO (16:14)
[2025-11-17 16:20] VITALS: BP 184/113; PULSE 87; O2SAT 100
== END 2025-11-17 16:28 | disposition home or self-care (01) ==
PROVIDERS: Emergency Provider Physician Assistant
DX: K04.7 Periapical abscess without sinus (principal)
CPT/HCPCS: 96372; 99284; J1100; J9999